=== PATIENT | male | born 1980 | race Caucasian/White ===

== ENCOUNTER 2020-05-17 04:00 | Emergency (ER) | payer MEDICAID, OTHER ==
[~2020-05-17] VITALS: Ht 185.4 cm; Wt 82.1 kg
--- NOTE | 2020-05-17 04:00 | NUR ---
PT DIRECT TO BED 11. PT CARE TO ALEKSEY ZAIDI
[2020-05-17 04:07] VITALS: BP 144/96
--- NOTE | 2020-05-17 04:19 | NUR ---
39 year old male patient presents to the emergency department bib ALS for postictal state s/p tonic clonic seizure at home that lasted approximately 1 minute per EMS statement. per family stated that this is the 2nd time seizure happened. first episode was yesterday and patient was seen at another hospital with negative results. upon arrival pt a/o x2 to name and place. PERRLA. denies headache or blurry vision. respirations are even and unlabored. CBL sounds. denies sob/cough. no other s/sx observed. reports 8/10 right shoulder pain. pt seems pacing and unrest with rt shoulder pain. placed seizure pads for sz precautions. placed on cardiac monitoring and pulse oximetry monitoring. Awaiting MSE. pmhx: denies nka negative covid screen
--- NOTE | 2020-05-17 04:23 | NUR ---
Dr. Desai at bedside evaluating pt.
[2020-05-17] MEDS ORDERED: KETOROLAC 30 MG/ML VIAL ONE (04:30)
[2020-05-17] MEDS ORDERED: KETOROLAC 30 MG/ML VIAL IVP ONE (04:30)
[2020-05-17] MEDS ORDERED: MORPHINE SULFATE 4 MG/ML SYR IVP ONE (05:15)
--- NOTE | 2020-05-17 05:15 | NUR ---
reports of 5/10 pain s/p toradol administration x 45 mins.
[2020-05-17] MEDS ORDERED: MORPHINE SULFATE 4 MG/ML SYR ONE (05:16)
[2020-05-17 05:21] VITALS: BP 130/74
--- NOTE | 2020-05-17 05:58 | NUR ---
Patient discharged with v/s stable. Written and verbal after care instructions given and explained. Patient alert, oriented and verbalized understanding of instructions. Ambulatory with steady gait. All questions addressed prior to discharge. ID band removed. Patient advised to follow up with PMD. Rx of motrin and norco given. Patient educated on indication of medication including possible reaction and side effects. Opportunity to ask questions provided and answered.given a copy of xray results.
== END 2020-05-17 05:58 | disposition home or self-care (01) ==
LOC: MED 04:00
DX: R56.9 Unspecified convulsions (principal); M25.511 Pain in right shoulder; F12.90 Cannabis use, unspecified, uncomplicated; Z98.890 Other specified postprocedural states
CPT/HCPCS: 73030; 96374; 96375; 99284; J1885; J2270; Q0092

== ENCOUNTER 2021-05-31 14:01 | Emergency (ER) | payer OTHER ==
[~2021-05-31] VITALS: Ht 177.8 cm; Wt 77.1 kg
[2021-05-31 14:06] VITALS: BP 145/96
[2021-05-31] MEDS ORDERED: METR500T1 PO (14:57)
[2021-05-31 15:03] VITALS: BP 145/96
--- NOTE | 2021-05-31 15:04 | NUR ---
Patient discharged with v/s stable. Written and verbal after care instructions about trichinosis given and explained. Patient alert, oriented and verbalized understanding of instructions. Ambulatory with steady gait. All questions addressed prior to discharge. ID band removed. Patient advised to follow up with PMD. Rx of flagyl given. Patient educated on indication of medication including possible reaction and side effects. Opportunity to ask questions provided and answered.
[2021-05-31 15:28] LABS: BILIRUBIN,URINE NEGATIVE (NEGATIVE); BLOOD, URINE NEGATIVE (NEGATIVE); LEUKOCYTE ESTERASE ,URINE NEGATIVE (NEGATIVE); NITRITE, URINE NEGATIVE (NEGATIVE); UGLUCOSE NEGATIVE (NEGATIVE)
[2021-05-31 15:32] LABS: APPEARANCE,URINE CLEAR (CLEAR); COLOR,URINE YELLOW (YELLOW)
== END 2021-05-31 15:04 | disposition home or self-care (01) ==
LOC: MED 14:01
DX: Z20.2 Contact with and (suspected) exposure to infections with a predominantly sexual mode of transmission (principal); Z79.899 Other long term (current) drug therapy
CPT/HCPCS: 81003; 99283

== ENCOUNTER 2023-09-26 11:22 | Emergency (ER) | payer OTHER ==
[~2023-09-26] VITALS: Ht 180.3 cm; Wt 73.9 kg
[~2023-09-26 11:22] MED LIST: METR500T1 PO
[2023-09-26 11:27] VITALS: BP 129/83; PULSE 86; RESP 20; TEMP 97.6
[2023-09-26 13:19] VITALS: O2SAT 98
[2023-09-26] MEDS ORDERED: KETOROLAC 60 MG/2 ML VIAL IM ONE (13:25)
[2023-09-26] MEDS ORDERED: ACET-503 PO (13:59)
[2023-09-26] MEDS ORDERED: IBUP-2213 PO (13:59)
[2023-09-26 14:16] VITALS: BP 129/83; PULSE 86; RESP 20; TEMP 97.6; O2SAT 99
== END 2023-09-26 14:15 | disposition home or self-care (01) ==
LOC: MED 11:22
DX: M25.552 Pain in left hip (principal); F12.90 Cannabis use, unspecified, uncomplicated; Z86.69 Personal history of other diseases of the nervous system and sense organs; Z79.2 Long term (current) use of antibiotics; V03.99XA Pedestrian with other conveyance injured in collision with car, pick-up truck or van, unspecified whether traffic or nontraffic accident, initial encounter; Y93.89 Activity, other specified; Y92.410 Unspecified street and highway as the place of occurrence of the external cause; Y99.8 Other external cause status
CPT/HCPCS: 73502; 96372; 99283; J1885